=== PATIENT | female | born 1985 | race Caucasian/White ===

== ENCOUNTER 2018-10-30 10:56 | Emergency (ER) | payer SELFPAY ==
[~2018-10-30] VITALS: Ht 170.2 cm; Wt 72.6 kg
[2018-10-30 11:09] VITALS: BP 113/69
--- NOTE | 2018-10-30 11:14 | NUR ---
back to lobby --x-ray ordered
--- NOTE | 2018-10-30 11:40 | NUR ---
PT BIB SELF c/o right foot pain x 2 days---twisted foot while walking swelling discoloration tender +2 pedal pulse <3 sec cap refill. er md to [facility], all orders executed. pain 01/10.
--- NOTE | 2018-10-30 11:40 | NUR ---
PT AMB TO ER BED 1
[2018-10-30] MEDS ORDERED: KETOROLAC 30 MG/ML VIAL IM ONE (12:10)
[2018-10-30 12:42] VITALS: BP 121/78
--- NOTE | 2018-10-30 12:42 | NUR ---
Patient discharged with v/s stable. Written and verbal after care instructions given and explained. Patient alert, oriented and verbalized understanding of instructions. Ambulatory with [facility]. All questions addressed prior to discharge. ID band removed. Patient advised to follow up with PMD. Rx of NAPROSYN given. Patient educated on indication of medication including possible reaction and side effects. Opportunity to ask questions provided and answered.
== END 2018-10-30 12:42 | disposition home or self-care (01) ==
LOC: MED 10:56
DX: S93.601A Unspecified sprain of right foot, initial encounter (principal); Z88.6 Allergy status to analgesic agent; Z88.5 Allergy status to narcotic agent; X58.XXXA Exposure to other specified factors, initial encounter; Y93.89 Activity, other specified; Y92.89 Other specified places as the place of occurrence of the external cause; Y99.8 Other external cause status
CPT/HCPCS: 73630; 96372; 99283; J1885